=== PATIENT | female | born 1955 | race Caucasian/White ===

== ENCOUNTER 2018-05-15 12:32 | Outpatient (REF) | payer MEDICARE, MEDICAID, SELFPAY ==
--- NOTE | 2018-05-15 10:45 | PAPFT_PTH ---
PATIENT: Maine Loya [facility]: [facility] U#:[id number] AGE/SX: 62/F ROOM: RE05/15/[address]: Lori Ring : 1955 BED: DIS: 05/15/2018 SPEC #: [id number] RECD: 05/18/18 13:16 STATUS: MARTHA REQ #: [id number] LACY: 05/15/18 10:[address]: Lori Ring DEPT: [facility] Cytology RECD BY: Heidi Byrd ENTERED: 05/18/18 13:16 SP TYPE: PAPFT OTHR DR: Carlie Crockett Tissues: 1 - CX/ENDOCX FOR PAP SMEARS Procedures: PAP THIN PREP/UVM Screening HPV DNA PROBE Comments: [id number]
== END 2018-05-15 12:52 ==
LOC: NCHCN 12:32
PROVIDERS: PCP Nurse Practitioner Family; Visit Provider Family Medicine
DX: R35.0 Frequency of micturition; Z12.4 Encounter for screening for malignant neoplasm of cervix; Z11.51 Encounter for screening for human papillomavirus (HPV)
CPT/HCPCS: 88142; 87086; 87624

== ENCOUNTER 2018-11-04 13:51 | Outpatient (REF) | payer MEDICARE, MEDICAID, SELFPAY ==
[2018-11-04 21:36] LABS: HCT 39.1 % (36.0-46.0); HGB 12.9 g/dL (12.0-15.5); Mean Corpuscular Hemoglobin 29.3 pg (27.0-33.0); Mean Corpuscular Volume 88.7 fL (80-95); Mean Platelet Volume 11.2 fL (8.0-11.0); Platelet Count 353 x1000/uL (130-400); RBC 4.41 m/cumm (4.00-5.20); RBC Distribution Width 14.1 % (11.7-14.6); White Blood Cell Count 8.34 k/cumm (4.4-10.8)
[2018-11-04 22:21] LABS: ALT 24 U/L (12-78); AST 16 U/L (15-37); Albumin 3.8 g/dL (3.4-5.0); Alkaline Phosphatase 113 U/L (46-116); Anion Gap 8.3 mmol/L (3-11); BUN 17 mg/dL (7-18); Bilirubin, Total 0.3 mg/dL (0.2-1.0); CO2 27.7 mmol/L (21.0-32.0); CREATININE 0.91 mg/dL (0.55-1.02); Calcium 9.3 mg/dL (8.5-10.1); Chloride 104 mmol/L (98-107); Glucose 91 mg/dL (70-100); Sodium 140 mmol/L (136-145); TSH (W/Ref FT4) 2.53 uIU/mL (0.358-3.74); Total Protein 7.5 g/dL (6.4-8.2); Vitamin B12 187 pg/mL (193-986)
[2018-11-05 07:56] LABS: Vitamin D 25 Total 30.3 ng/ml (30-100)
== END 2018-11-04 14:11 ==
LOC: NCHCN 13:51
PROVIDERS: PCP Nurse Practitioner Family; Visit Provider Family Medicine
DX: R42 Dizziness and giddiness (principal); G35 Multiple sclerosis; E55.9 Vitamin D deficiency, unspecified; E53.8 Deficiency of other specified B group vitamins; E78.5 Hyperlipidemia, unspecified
CPT/HCPCS: 80053; 82306; 85027; 82607; 84443

== ENCOUNTER 2019-08-20 14:48 | Outpatient (REF) | payer MEDICARE, MEDICAID, SELFPAY ==
[2019-08-20 21:40] LABS: Vitamin D 25 Total 31.6 ng/ml (30-100)
[2019-08-20 21:48] LABS: ALT 23 U/L (14-59); AST 12 U/L (15-37); Albumin 3.9 g/dL (3.4-5.0); Alkaline Phosphatase 95 U/L (46-116); Anion Gap 7.7 mmol/L (3-11); BUN 14 mg/dL (7-18); Bilirubin, Total 0.3 mg/dL (0.2-1.0); CO2 29.3 mmol/L (21.0-32.0); CREATININE 0.95 mg/dL (0.55-1.02); Calcium 9.5 mg/dL (8.5-10.1); Chloride 105 mmol/L (98-107); Estimated GFR 59.22 (mL/min/1.73m2); Glucose 103 mg/dL (74-106); Potassium 4.6 mmol/L (3.5-5.1); Sodium 142 mmol/L (136-145); Total Protein 7.6 g/dL (6.4-8.2); Vitamin B12 317 pg/mL (193-986)
== END 2019-08-20 15:08 ==
LOC: NCHCN 14:48
PROVIDERS: PCP Nurse Practitioner Family; Visit Provider Family Medicine
DX: E53.8 Deficiency of other specified B group vitamins (principal); E55.9 Vitamin D deficiency, unspecified; F31.9 Bipolar disorder, unspecified
CPT/HCPCS: 80053; 82306; 82607

== ENCOUNTER 2020-01-28 21:25 | Outpatient (REF) | payer MEDICARE, MEDICAID, SELFPAY ==
[2020-01-28 21:23] LABS: CREATININE 1.04 mg/dL (0.55-1.02); Estimated GFR 53.18 (mL/min/1.73m2)
== END 2020-01-28 21:45 ==
LOC: NCHCN 21:25
PROVIDERS: PCP Nurse Practitioner Family; Visit Provider Family Medicine
DX: G62.9 Polyneuropathy, unspecified (principal); Z87.442 Personal history of urinary calculi
CPT/HCPCS: 82565

== ENCOUNTER 2020-05-19 14:55 | Outpatient (REF) | payer MEDICARE, MEDICAID, SELFPAY ==
[2020-05-19 21:47] LABS: ALT 23 U/L (14-59); AST 18 U/L (15-37); Albumin 4.2 g/dL (3.4-5.0); Alkaline Phosphatase 91 U/L (46-116); BUN 12 mg/dL (7-18); Bilirubin, Total 0.3 mg/dL (0.2-1.0); CREATININE 0.87 mg/dL (0.55-1.02); Calcium 9.5 mg/dL (8.5-10.1); Calculated LDL 121 mg/dL (<100); Chloride 105 mmol/L (98-107); Cholesterol 224 mg/dL (<200); Glucose 92 mg/dL (74-106); HDL Cholesterol 53 mg/dL (40-60); Potassium 4.3 mmol/L (3.5-5.1); Sodium 142 mmol/L (136-145); Total Protein 7.8 g/dL (6.4-8.2); Triglyceride 254 mg/dL (<150); Vitamin B12 246 pg/mL (193-986)
[2020-05-22 05:29] LABS: Vitamin D 25 Total 32.2 ng/ml (30-100)
== END 2020-05-19 15:15 ==
LOC: NCHCN 14:55
PROVIDERS: PCP Family Medicine; Visit Provider Family Medicine
DX: E78.5 Hyperlipidemia, unspecified (principal); E55.9 Vitamin D deficiency, unspecified; F31.9 Bipolar disorder, unspecified; Z00.00 Encounter for general adult medical examination without abnormal findings
CPT/HCPCS: 80053; 80061; 82306; 82607

== ENCOUNTER 2021-11-02 19:08 | Outpatient (REF) | payer MEDICARE, MEDICAID, SELFPAY ==
[2021-11-02 21:12] LABS: HGB 14.1 g/dL (11.2-15.7); MCH 29.1 pg (27.0-33.0); MCHC 32.8 % (32.0-36.0); MCV 88.8 fL (80-95); MPV 10.6 fL (8.0-11.0); Platelet Count 379 10^3/uL (130-400); RBC 4.84 10^6/uL (3.93-5.22); RDW 13.8 % (11.7-14.6); RDW-SD 44.7 fL
[2021-11-02 21:50] LABS: ALT 21 U/L (14-59); AST 10 U/L (15-37); Albumin 3.9 g/dL (3.4-5.0); Alkaline Phosphatase 95 U/L (46-116); Anion Gap 9.5 mmol/L (3-11); BUN 14 mg/dL (7-18); Bilirubin, Total 0.2 mg/dL (0.2-1.0); CO2 25.5 mmol/L (21.0-32.0); Chloride 105 mmol/L (98-107); Glucose 95 mg/dL (74-106); Potassium 4.2 mmol/L (3.5-5.1); Sodium 140 mmol/L (136-145); Total Protein 7.6 g/dL (6.4-8.2); Vitamin B12 266 pg/mL (193-986)
== END 2021-11-02 19:09 | disposition home or self-care (01) ==
LOC: NCHCN 19:08
PROVIDERS: PCP Family Medicine; Visit Provider Family Medicine
DX: K50.90 Crohn's disease, unspecified, without complications (principal); E53.8 Deficiency of other specified B group vitamins; G35 Multiple sclerosis; F31.9 Bipolar disorder, unspecified
CPT/HCPCS: 80053; 85027; 82607

== ENCOUNTER 2022-12-04 08:16 | Outpatient (REF) | payer MEDICARE, MEDICAID, SELFPAY ==
[2022-12-04 15:22] LABS: ALT 19 U/L (14-59); AST 21 U/L (15-37); Alkaline Phosphatase 91 U/L (46-116); Anion Gap 12.2 mmol/L (3-11); BUN 21 mg/dL (7-18); Bilirubin, Total 0.2 mg/dL (0.2-1.0); CO2 23.8 mmol/L (21.0-32.0); CREATININE 1.2 mg/dL (0.55-1.02); Calcium 9.3 mg/dL (8.5-10.1); Calculated LDL 139 mg/dL (<100); Chloride 104 mmol/L (98-107); Cholesterol 236 mg/dL (<200); Estimated GFR 49.31 (mL/min/1.73m2); Glucose 96 mg/dL (74-106); HDL Cholesterol 54 mg/dL (40-60); Potassium 4.5 mmol/L (3.5-5.1); Sodium 140 mmol/L (136-145); Total Protein 7.9 g/dL (6.4-8.2); Triglyceride 215 mg/dL (<150)
[2022-12-04 15:31] LABS: Vitamin D 25 Total 26.2 ng/mL (30-100)
== END 2022-12-04 08:17 | disposition home or self-care (01) ==
LOC: NCHCN 08:16
PROVIDERS: PCP Family Medicine; Visit Provider Family Medicine
DX: E78.5 Hyperlipidemia, unspecified (principal); E55.9 Vitamin D deficiency, unspecified; Z00.00 Encounter for general adult medical examination without abnormal findings; M85.80 Other specified disorders of bone density and structure, unspecified site
CPT/HCPCS: 80053; 80061; 82306

== ENCOUNTER 2024-07-01 12:29 | Outpatient (REF) | payer MEDICARE, MEDICAID, SELFPAY ==
[2024-07-01 15:55] LABS: ALT 17 U/L (14-59); AST 18 U/L (15-37); Albumin 3.6 g/dL (3.4-5.0); Alkaline Phosphatase 101 U/L (46-116); Anion Gap 10.5 mmol/L (3-11); BUN 16 mg/dL (7-18); Bilirubin, Total 0.37 mg/dL (0.2-1.0); CO2 25.5 mmol/L (21.0-32.0); CREATININE 1.1 mg/dL (0.55-1.02); Calcium 9.4 mg/dL (8.5-10.1); Calculated LDL 147 mg/dL (<100); Chloride 110 mmol/L (98-107); Cholesterol 231 mg/dL (<200); Estimated GFR 54.39 (mL/min/1.73m2); Glucose 95 mg/dL (74-106); HDL Cholesterol 58 mg/dL (40-60); Potassium 4.1 mmol/L (3.5-5.1); Sodium 146 mmol/L (136-145); Total Protein 7.5 g/dL (6.4-8.2); Triglyceride 133 mg/dL (<150); Vitamin B12 257 pg/mL (193-986); Vitamin D 25 Total 21.7 ng/mL (30-100)
== END 2024-07-01 12:30 | disposition home or self-care (01) ==
LOC: NCHCN 12:29
PROVIDERS: PCP Family Medicine; Visit Provider Family Medicine
DX: E78.5 Hyperlipidemia, unspecified (principal); E55.9 Vitamin D deficiency, unspecified
CPT/HCPCS: 80053; 80061; 82306; 82607

== ENCOUNTER 2025-02-01 07:49 | Emergency (ER) | payer MEDICARE, MEDICAID, SELFPAY ==
--- NOTE | 2025-02-01 07:46 | W.ED.GENAD ---
Discharge Plan Disposition Patient Disposition: Home Discharge Details Clinical Impression: Hydronephrosis, left, Ureterolithiasis Primary Care Provider: Lori Ring ED Provider: Faizan Garcia Home Meds and New Rx's Prescriptions: New tamsulosin 0.4 mg capsule 0.4 mg PO DAILY Qty: 7 0RF Continued tramadol 50 mg tablet 50 mg PO TID PRN Patient Comments: TAKE ONE TABLET BY MOUTH THREE TIMES A DAY NEEDED FOR CHRONIC PAIN cyanocobalamin (vitamin B-12) 1,000 mcg tablet, sublingual 1,000 mcg PO DAILY Patient Comments: TAKE TWO TABLETS BY MOUTH ONCE DAILY No Action acetylcysteine 600 mg capsule 600 mg PO BID Patient Comments: TAKE TWO CAPSULES BY MOUTH TWICE A DAY duloxetine 60 mg capsule,delayed release(DR/EC) 60 mg PO DAILY Patient Comments: TAKE ONE CAPSULE BY MOUTH EVERY MORNING buspirone 10 mg tablet 10 mg PO BID Patient Comments: TAKE TWO TABLETS BY MOUTH TWICE A DAY lamotrigine 200 mg tablet 200 mg PO DAILY Patient Comments: TAKE ONE TABLET BY MOUTH TWICE A DAY aspirin 81 mg capsule 81 mg PO DAILY Discharge Instructions Instructions: Kidney stones in adults Additional Instructions: You are seen in the emergency department for your abdominal pain. You are found to have a kidney stone on the left. The urology team will call you for follow-up as you will likely require a stent in 2 days. As we discussed if you develop fevers cannot eat or drink develop nausea or vomiting or if you have any other concerns please return to the emergency department. Please take this new medication as prescribed which should help your kidney stone pass. For your pain please take medications as follows: 1. Take acetaminophen (Tylenol), 1,000 mg (two 500 mg tabs) every 6 hours [2. Take ibuprofen (Advil), 400 mg every 6 hours.] HPI General Date/Time Provider Initiated Documentation: 02/01/25 07:59. HPI Narrative: MDM This is an overall well-appearing normothermic and not tachycardic 69-year-old female with Crohn's disease and abdominal distention concerning for possibility of Crohn's flare for which patient will undergo CT imaging. No nausea nor chest pain to suggest ACS nonetheless based on age and sex will obtain ECG and troponin testing. Ureterolithiasis is also on the differential so we will obtain CT scan. Patient does have an BMI so we will check a lipase to assess for pancreatitis. No pain out of proportion to suggest necrotizing soft tissue infection. No rash to abdomen to suggest zoster. I considered sepsis however patient denies fevers and is not hypotensive so we will defer lactate and blood culture. Given right lower quadrant tenderness appendicitis certainly on differential. No diarrhea to suggest diverticulitis. Patient not hypotensive to suggest ruptured AAA. 9:26 am Patient was found to have a left-sided UPJ stone measuring 7 mm. She had 2 reassuring troponins. She had CKD but no SHUBHAM. She had leukocytosis but no anemia nor thrombocytopenia. I spoke to Dr. Carpio from urology. He plans to take patient to the OR for a stent on 02/03. His team will call for follow. He felt comfortable with several days of NSAIDs. He requested tamsulosin. I asked the patient some screening questions for our anesthesia group. She has no history of coronary artery disease, no recent stroke, no history of pulmonary arterial hypertension or heart failure. She reports not taking any diuretics. Her pain is markedly improved. Her urine dip shows large blood but is nitrite negative. We discussed that she should return to the ED for worsening pain nausea or vomiting. I advised scheduled acetaminophen and ibuprofen. Patient was discharged with empiric trial of expectant outpatient management with urology follow-up. HPI This is a patient with a history of Crohn's disease presenting with constipation. The patient reports irregular bowel movements, which have been a long-standing issue due to her Crohn's disease. She has undergone two bowel resections in the past, with the most recent surgery occurring 8 years ago. On Friday, she attended her grandson's graduation libertarian and was very active, which led to her taking tramadol that night and again the following day. She did not take any tramadol today after realizing that opioids can cause significant constipation. The patient reports no vomiting, fever, or dysuria. She has a history of kidney stones but does not believe this is the cause of her current symptoms, as she is not experiencing flank pain. Instead, she describes the pain as being located in her lower back and radiating upwards. Patient reports prior history of ureterolithiasis requiring stenting at [facility]. Exam General: Well-appearing in no acute distress speaking in complete sentences. Head: Normocephalic, atraumatic. Eye: Extraocular eye movements intact. No conjunctival injection. No scleral icterus. Ear, nose, mouth, throat: Grossly normal inspection. Normal voice, handling secretions normally. Neck: Trachea midline. Cardiovascular: Well-perfused distal extremities. Respiratory: Nonlabored respiration. Clear lungs bilaterally. Gastrointestinal: Nondistended abdomen. Mildly distended wound healing midline abdominal incision. Periumbilical tenderness and right lower quadrant tenderness. No rebound. No guarding. Musculoskeletal: No edema. Moving all 4 extremities spontaneously. Skin: Normal for age and race, grossly normal temperature and turgor. No acute rash. Neurologic: Alert and appropriate, no apparent acute deficits. Psychiatric: Mood and manner are appropriate. Grooming and personal hygiene are appropriate. Related Data Home Medications ?Medication ?Instructions ?Recorded ?Confirmed acetylcysteine 600 mg capsule 600 mg PO BID 02/01/25 02/01/25 aspirin 81 mg capsule 81 mg PO DAILY 02/01/25 02/01/25 buspirone 10 mg tablet 10 mg PO BID 02/01/25 02/01/25 cyanocobalamin (vitamin B-12) 1,000 mcg PO DAILY 02/01/25 02/01/25 1,000 mcg sublingual tablet duloxetine 60 mg capsule,delayed 60 mg PO DAILY 02/01/25 02/01/25 release lamotrigine 200 mg tablet 200 mg PO DAILY 02/01/25 02/01/25 tamsulosin 0.4 mg capsule 0.4 mg PO DAILY #7 caps 02/01/25 tramadol 50 mg tablet 50 mg PO TID PRN 02/01/25 02/01/25 Previous Rx's ?Medication ?Instructions ?Recorded tamsulosin 0.4 mg capsule 0.4 mg PO DAILY #7 caps 02/01/25 Allergies Allergy/AdvReac Type Severity Reaction Status Date / Time dimethyl fumarate (From AdvReac Intermediate Unknown Verified 02/01/25 08:14 Tecfidera) [facility] All Active Problems (Updated 02/01/25 @ 09:31 by Faizan Garcia MD) Ureterolithiasis (Acute) Hydronephrosis, left (Acute) Social History Smoking/Tobacco Use Status: Current every day Smoking risk assessment performed?: Yes Alcohol Intake: never Substance use type: marijuana
[2025-02-01 07:48] VITALS: BP 138/95; PULSE 98; RESP 16; TEMP 36.7; O2SAT 94
--- NOTE | 2025-02-01 08:00 | DI.CT_ITS ---
Exam(s) CT ABDOMEN PELVIS W EXAM: CT ABDOMEN PELVIS W CLINICAL HISTORY: Generalized abdominal pain. TECHNIQUE: Imaging Protocol: Axial computed tomography images with coronal and sagittal reformatted images were created and reviewed CONTRAST MATERIAL: Intravenous: Omnipaque 350 Contrast volume:75 ml Oral: no COMPARISON: No exams were available for comparison FINDINGS: ABDOMEN and PELVIS: Lung Bases: No acute findings. Liver: Normal density. No suspicious mass. Gallbladder and biliary tract: Cholelithiasis. No wall thickening or pericholecystic fluid. No biliary dilation. Pancreas: Normal density. No abnormal calcifications or inflammatory process. No evidence of mass. Spleen: Normal. Kidneys: Normal size, contour and axis. 7 by 6 millimeter stone in the left ureteral pelvic junction causing moderate hydronephrosis. Mild delay in the left nephrogram. No additional calculi. Mild perinephric stranding.. No suspicious masses seen. Adrenal glands: No masses seen. Vasculature: Abdominal aorta non-dilated. Soft tissues: Some dehiscence of the midline anterior abdominal wall with small fatty hernias superior to the level of the umbilicus. Bladder: No gross wall thickening. No calculi.No focal mass. Bowel: Partial colonic resection Withy ileocolic anastomosis in the midline of the upper pelvis. Increased quantity of stool noted to the level of the splenic flexure. No obstruction. No bowel wall thickening. Appendix normal. Peritoneal cavity: No ascites. No focal collection. No mesenteric inflammatory response. No free air. Bones: Unremarkable for age. Reproductive organs: Unremarkable. Lymph nodes: No pathologically enlarged lymph nodes. IMPRESSION:: Moderate left hydronephrosis secondary to a 7 millimeter stone at the ureteropelvic junction. Cholelithiasis. No biliary dilatation or gallbladder wall thickening. RADIATION DOSE DELIVERED: 504.23mGy.cm Total DLP DATA REPOSITORY: All CT scans at this facility are submitted to the National Radiology Data Registry (NRDR) Dose Index Registry (DIR) with the [employer] (ACR). RADIATION OPTIMIZATION: All CT scans at this facility use at least one of these dose optimization techniques: automated exposure control; mA and/or kV adjustment per patient size (includes targeted exams where dose is matched to clinical indication); or iterative reconstruction.
--- NOTE | 2025-02-01 08:00 | RT.EKG_ITS ---
APPROVED REPORT Exam: Resting ECG Reason for Exam: Chest pain Patient Location: E HR:75 bpm ECG Measurements Heart Rate 75 AXIS AK 148 P 78 QRSd 85 QRS 54 QT 405 T 61 QTc 453 Conclusion Sinus rhythm...normal P axis, V-rate 60- 99 Nonspecific T abnormalities, anterior leads...T <-0.10mV, V2-V4 No Occlusion WA. Anterior T wave version V2. Intervals within normal limits. Narrow complex normal sinus rhythm. No acute injury pattern. No prior for comparison.
[2025-02-01 08:15] LABS: Abs Immature Grans 0.04 10^3/uL (0.0-0.06); Absolute Basophil Count 0.09 10^3/uL (0.0-0.2); Absolute Eosinophil Count 0.03 10^3/uL (0.0-0.7); Absolute Lymphocyte Count 1.05 10^3/uL (1.2-3.4); Absolute Monocyte Count 0.67 10^3/uL (0.1-0.8); Absolute Neutrophil Count 11.35 10^3/uL (1.2-6.7); Basophils % 0.7 %; Eosinophils % 0.2 %; HCT 43.8 % (36.0-46.0); HGB 14.6 g/dL (11.2-15.7); Immature Grans % 0.3 %; Lymphocytes % 7.9 %; MCH 29.5 pg (27.0-33.0); MCHC 33.3 % (32.0-36.0); MCV 89 fL (80-95); MPV 9.9 fL (8.0-11.0); Monocytes % 5.1 %; Neutrophils % 85.8 %; Platelet Count 321 10^3/uL (130-400); RBC 4.95 10^6/uL (3.93-5.22); RDW 14.1 % (11.7-14.6); RDW-SD 45.2 fL; WBC 13.23 10^3/uL (4.4-10.8)
[2025-02-01] MEDS: Normal Saline - Diluent 50 ML VIAL IJ (08:23)
[2025-02-01] MEDS: Omnipaque 350 MG/ML 100 ML BTL 75 ML IJ (08:24)
[2025-02-01 08:46] LABS: ALT 27 U/L (14-59); AST 19 U/L (15-37); Alkaline Phosphatase 107 U/L (46-116); Anion Gap 13.1 mmol/L (3-11); BUN 18 mg/dL (7-18); Bilirubin, Total 0.4 mg/dL (0.2-1.0); CO2 22.9 mmol/L (21.0-32.0); CREATININE 1.2 mg/dL (0.55-1.02); Calcium 9.1 mg/dL (8.5-10.1); Chloride 103 mmol/L (98-107); Glucose 134 mg/dL (74-106); Lipase 39 U/L (<78); Potassium 4.1 mmol/L (3.5-5.1); Sodium 139 mmol/L (136-145); Total Protein 7.7 g/dL (6.4-8.2)
[2025-02-01 08:55] LABS: Troponin I 5 ng/L (<or=51)
[2025-02-01] MEDS: Ondansetron 4 MG/2 ML VIAL IVP (09:27)
[2025-02-01] MEDS: ACETAMINOPHEN 1,000 MG/100 ML BAG 400 MG IVPB (09:27)
[2025-02-01] MEDS: Normal Saline 500 ML 1000 ML IV (09:28)
[2025-02-01 09:30] LABS: Bilirubin Negative (Negative); Blood Large (Negative); Clarity Clear (Clear); Glucose Negative (Negative); Ketones Negative (Negative); Leukocyte Esterase Negative (Negative); Nitrite Negative (Negative); Specific Gravity 1.015 (1.005-1.025); Urobilinogen 0.2 mg/dL (Up to 0.2)
[2025-02-01 09:48] LABS: Troponin I 5 ng/L (<or=51)
[2025-02-01] MEDS: Ketorolac 15 MG/ML VIAL IVP (10:05)
[2025-02-01] MEDS: Tamsulosin 0.4 MG CAPCR PO (10:05)
[2025-02-01 10:15] VITALS: BP 112/65; PULSE 84; RESP 18; O2SAT 94
== END 2025-02-01 10:31 | disposition home or self-care (01) ==
PROVIDERS: Emergency Provider Emergency Medicine; PCP Family Medicine
DX: N13.2 Hydronephrosis with renal and ureteral calculous obstruction (principal); F17.200 Nicotine dependence, unspecified, uncomplicated; Z79.82 Long term (current) use of aspirin
CPT/HCPCS: 80053; 83690; 93005; 96374; 96375; 99285; 74177; 81003; 84484; 85025; 93010; J0131; J1885; J2405; J3490

== ENCOUNTER 2025-02-07 07:08 | Day surgery (SDC) | payer MEDICARE, MEDICAID, SELFPAY ==
[2025-02-07 07:20] VITALS: BP 104/78; PULSE 100; RESP 18; TEMP 35.8; O2SAT 96
--- NOTE | 2025-02-07 10:21 | W.PM.HP.N ---
Date of service: 02/07/25 Time of Service: 08:30 Assessment and Plan Assessment and plan (1) Ureterolithiasis: Status: Acute Assessment and plan: We discussed both expectant management and surgical management of her stone. Given the size and location of the stone, there is less than 50% chance it will pass spontaneously, but some stones of this size certainly do pass with conservative management. If we wanted to treat her stones surgically, our best option would be flexible ureteroscopy with holmium laser lithotripsy and stone extraction. We would be prepared to do this surgery for her today if she is agreeable. There are certainly surgical risks including infection/sepsis, pain and ureteral injuries/strictures. She is not having pain and has no signs or symptoms of a urinary tract infection. It is certainly reasonable to wait and see if her stone will pass. Delaying her surgery runs the risk of having another episode of renal colic, but this event is unpredictable. After discussing the situation with the patient today, she is elected to postpone her surgery and give her to stone extra time to pass. I have refilled her prescription for tamsulosin. She assures me that she has pain medication at home if she should need it. I have asked her to check in with me by phone early next week although I would certainly expect her to call sooner if her renal colic returns. History of Present Illness History of Present Illness Chief Complaint: Left ureteral stone Narrative: This is a 69-year-old woman who has a history of kidney stones. She recalls having some type of surgical procedure for stones in the past, but she is not certain about the type of procedure required. The procedure was done at a different hospital. She is not certain as to her stones chemical composition. She recalls that she had an appointment with a urologist at [facility] about a year or 2 ago but she canceled the appointment. She presented to our emergency department last week with an acute onset of left-sided flank pain. She was found to have a proximal ureteral stone with hydronephrosis. She had no signs or symptoms concerning for urosepsis. She was started on analgesics and alpha blockers. We made arrangements for ureteroscopy given the size of her stone. She comes in today for the procedure, but she tells me she has had absolutely no pain since she was discharged from the emergency department. She has not passed her stone as far she knows. She has not been seeing any gross hematuria. She has no known history of hyperparathyroidism. She does have Crohn's disease and has had several bowel resections. She does not recall ever having done 24-hour urine studies. Review of Systems Narrative: No fevers or chills No vision change or dysphasia No diabetes or thyroid dysfunction No shortness of breath, cough or hemoptysis No chest pain or palpitations Crohn's disease. No hepatitis, ulcers, jaundice No seizures, strokes or peripheral neuropathy No bleeding disorders or anemia No gout PFSH All Active Problems (Updated 02/07/25 @ 10:25 by Gordy Carpio MD) Ureterolithiasis (Acute) Hydronephrosis, left (Acute) Medical History (Updated 02/07/25 @ 10:25 by Gordy Carpio MD) Multiple sclerosis Hx of Crohn's disease Depression with anxiety Surgical History (Updated 02/04/25 @ 14:13 by Gael Brown) History of surgery on arm History of bowel resection x2 Social History Smoking/Tobacco Use Status: Current every day Tobacco Type: cigarettes Smoking risk assessment performed?: Yes Alcohol Intake: never Drug use: Daily Substance use type: marijuana Housing: house Do you feel safe at home: Yes Do you feel safe in your relationship?: Yes Meds Allergies and Home Medications Allergies Allergy/AdvReac Type Severity Reaction Status Date / Time dimethyl fumarate (From AdvReac Intermediate Unknown Verified 02/01/25 08:14 Tecfidera) glatiramer (copolymer 1) AdvReac Intermediate Skin Rash Verified 02/03/25 11:02 (From Copaxone) Home Medications ?Medication ?Instructions ?Recorded ?Confirmed ?Type acetylcysteine 600 mg capsule 600 mg PO BID 02/01/25 02/04/25 History aspirin 81 mg capsule 81 mg PO DAILY 02/01/25 02/04/25 History buspirone 10 mg tablet 10 mg PO BID 02/01/25 02/04/25 History cyanocobalamin (vitamin B-12) 1,000 mcg PO DAILY 02/01/25 02/04/25 History 1,000 mcg sublingual tablet duloxetine 60 mg capsule,delayed 60 mg PO DAILY 02/01/25 02/04/25 History release lamotrigine 200 mg tablet 200 mg PO DAILY 02/01/25 02/04/25 History tamsulosin 0.4 mg capsule 0.4 mg PO DAILY #7 caps 02/01/25 02/04/25 Rx tramadol 50 mg tablet 50 mg PO TID PRN 02/01/25 02/04/25 History tamsulosin 0.4 mg capsule 0.4 mg PO DAILY help stone pass 02/07/25 Rx #30 caps Exam Narrative Exam Narrative: She does not appear septic or toxic Her vital signs are documented elsewhere Her chest wall motion is normal. She is not short of breath at rest. She is awake and alert I reviewed her CT scan on the PACS system. At the time of her emergency department visit, she had a left proximal ureteral stone with hydronephrosis. I do not see any additional stones in either kidney. I reviewed her lab work from her emergency department visit. There was no evidence of a urinary tract infection/sepsis Results Last Vital Signs Temp 35.8 C L 02/07/25 07:20 Pulse 100 H 02/07/25 07:20 Resp 18 02/07/25 07:20 BP 104/78 02/07/25 07:20 Pulse Ox 96 02/07/25 07:20 Time Spent Time spent with Patient: <40 minutes Time was spent: preparing to see the patient(eg.review tests), obtaining and/or reviewing separately otained hiistory, indepentently interpreting results and counseling the patient
== END 2025-02-07 07:09 ==
LOC: SUR 07:08
PROVIDERS: PCP Family Medicine; Visit Provider Urology
DX: N20.1 Calculus of ureter (principal); Z53.9 Procedure and treatment not carried out, unspecified reason

== ENCOUNTER 2025-02-08 17:37 | Outpatient (REF) | payer MEDICARE, MEDICAID, SELFPAY ==
[2025-02-08 17:45] LABS: Abs Immature Grans 0.03 10^3/uL (0.0-0.06); HCT 42.3 % (36.0-46.0); HGB 13.8 g/dL (11.2-15.7); Immature Grans % 0.4 %; MCH 29.9 pg (27.0-33.0); MCHC 32.6 % (32.0-36.0); MCV 92 fL (80-95); MPV 11.7 fL (8.0-11.0); Platelet Count 276 10^3/uL (130-400); RBC 4.61 10^6/uL (3.93-5.22); RDW 14.6 % (11.7-14.6); RDW-SD 49.9 fL; WBC 8.03 10^3/uL (4.4-10.8)
[2025-02-08 18:19] LABS: Anion Gap 10.3 mmol/L (3-11); BUN 21 mg/dL (7-18); CO2 23.7 mmol/L (21.0-32.0); Calcium 9.2 mg/dL (8.5-10.1); Chloride 105 mmol/L (98-107); Estimated GFR 79.22 (mL/min/1.73m2); Glucose 101 mg/dL (74-106); Potassium 4.6 mmol/L (3.5-5.1); Sodium 139 mmol/L (136-145); Vitamin B12 352 pg/mL (193-986); Vitamin D 25 Total 29 ng/mL (30-100)
[2025-03-15 12:33] LABS: 11-Nor-9-carboxy-THC,S/P 7 ng/mL
== END 2025-02-08 17:38 | disposition home or self-care (01) ==
LOC: NCHCN 17:37
PROVIDERS: PCP Family Medicine; Visit Provider Family Medicine
DX: E55.9 Vitamin D deficiency, unspecified (principal); D72.829 Elevated white blood cell count, unspecified; G89.4 Chronic pain syndrome; E53.9 Vitamin B deficiency, unspecified
CPT/HCPCS: 80048; 80349; 82306; 80307; 82607; 85025